=== PATIENT | female | born 1995 | race Caucasian/White ===

== ENCOUNTER 2018-01-26 17:12 | Outpatient (CLI) | END 2018-01-26 21:20 | disposition home or self-care (01) ==

== ENCOUNTER 2018-02-23 18:09 | Outpatient (CLI) | END 2018-02-23 21:55 | disposition home or self-care (01) ==

== ENCOUNTER 2018-02-25 12:01 | Outpatient (CLI) | END 2018-02-25 15:30 | disposition home or self-care (01) ==

== ENCOUNTER 2018-03-10 08:20 | Inpatient (IN) | END 2018-03-12 19:00 | disposition home or self-care (01) | DRG 807 ==